=== PATIENT | male | born 1960 ===

== ENCOUNTER 2019-05-14 19:30 | Outpatient (CLI) | payer BC | END 2019-05-14 19:31 | disposition home or self-care (01) | LOC: SLEEPLAB 19:30 | PROVIDERS: ATTEND Otolaryngology Plastic Surgery within the Head & Neck | DX: G47.33 Obstructive sleep apnea (adult) (pediatric) (principal); R09.89 Other specified symptoms and signs involving the circulatory and respiratory systems; G47.31 Primary central sleep apnea | CPT/HCPCS: 95811 ==